=== PATIENT | male | born 1990 | race Caucasian/White ===

== ENCOUNTER 2017-04-01 17:11 | Emergency (ER) | payer OTHER ==
[~2017-04-01] VITALS: Ht 188 cm; Wt 128.2 kg
[2017-04-01] MEDS ORDERED: TOBREX5 ML RIGHT EYE (20:16)
[2017-04-01 20:30] VITALS: BP 145/69
== END 2017-04-01 20:30 | disposition home or self-care (01) ==
LOC: EME 17:11
DX: T15.02XA Foreign body in cornea, left eye, initial encounter (principal); Y93.89 Activity, other specified
CPT/HCPCS: 99281; 99284